=== PATIENT | female | born 1960 | race Caucasian/White ===

== ENCOUNTER 2021-01-11 08:57 | Outpatient (REF) | payer MEDICAID, SELFPAY ==
--- NOTE | ~2021-01-11 | CT_ITS ---
EXAMINATION: CT ABDOMEN AND PELVIS WITH CONTRAST CLINICAL INFORMATION: Left lower quadrant pain. COMPARISON: Previous pelvic ultrasound 06/27/2018, MR of the abdomen July [address] of the abdomen and pelvis 03/13/2015. TECHNIQUE: Multidetector volumetric images were obtained from the superior aspect of the liver through the pubic symphysis following administration 85 mL of Omnipaque 350 intravenous contrast. Sagittal and coronal reformatted images were obtained on the technologist's workstation. Oral contrast: Yes This CT examination was performed using dose optimization techniques as appropriate, variously including the following: Automated exposure control. Adjustment of mA and/or kV according to patient size (this includes techniques or standardized protocols for targeted exams where dose is matched to indication/reason for exam; i.e. extremities or head). Use of iterative reconstruction technique. DLP: 314 mGy-cm FINDINGS: LUNG BASES: The visualized lung bases are unremarkable. LIVER, GALLBLADDER, AND BILIARY TREE: The liver is normal in size, shape, and attenuation. There is a small 5 mm peripheral low-attenuation lesion in the right lobe axial image 20 series 3. There is a 7 mm peripheral low-attenuation lesion in the medial segment of the left lobe axial image 17 series 3. These are stable from prior MRI exams and probably represent small cysts. No biliary ductal dilatation is present. The gallbladder is unremarkable with no evidence of radiopaque gallstones, gallbladder wall thickening, or obvious pericholecystic inflammatory changes. PANCREAS: Unremarkable. SPLEEN: Unremarkable. ADRENAL GLANDS: Unremarkable. KIDNEYS AND URETERS: The kidneys are normal in size, shape, and attenuation. No hydronephrosis, hydroureter, or calculi seen. No perinephric stranding. BLADDER: Unremarkable. GASTROINTESTINAL TRACT: There is a large amount of stool in the colon. The small and large bowel are otherwise unremarkable. The appendix is not identified. ABDOMINAL WALL: No significant hernia is appreciated. LYMPH NODES: Normal. VASCULAR: Unremarkable. PELVIC VISCERA: Unremarkable. OSSEOUS STRUCTURES: There is a bilateral L5 pars defect. Bony structures are otherwise unremarkable. CT/CT abdomen pelvis w con IMPRESSION: Stool throughout the colon questionable for constipation. Small probable liver cysts. Bilateral L5 pars defect. Fleischner guidelines were followed.
[2021-01-11] MEDS: Barium Sulfate Oral (Vanilla) 450 ML ORAL.SUSP 900 ML PO (11:21)
[2021-01-11] MEDS: iohexoL 350 MG/ML 100 ML INFUS..BTL IV (11:21)
== END 2021-01-11 08:58 | disposition home or self-care (01) ==
LOC: HO.CT 08:57
PROVIDERS: Visit Provider Family Medicine
DX: R10.32 Left lower quadrant pain (principal)
CPT/HCPCS: 74177; Q9967